=== PATIENT | female | born 1955 | race Caucasian/White ===

== ENCOUNTER → 2017-04-19 | Outpatient (CLI) | payer BC ==
--- NOTE | 2017-04-19 09:47 | KCIC ---
5 view lumbar spine dated 04/19/2017. No comparison available. Clinical indication: Chronic pain in lumbosacral region. FINDINGS: AP, lateral, flexion-extension views and cone-down views of the lumbosacral junction obtained. 5 nonrib-bearing vertebral levels. Vertebral body heights are maintained. There is slight anterolisthesis of L4 relative to L5 that is stable on flexion-extension views. There is also slight anterolisthesis of L3 on L4 that appears somewhat more pronounced in flexion. Minimal hypertrophic change of the superior and inferior endplates throughout. Mild disc space narrowing at L4-L5 with moderate disc space narrowing at L5-S1. [id number] arthrosis lower lumbar apophyseal joints. IMPRESSION: 1. Grade 1 anterolisthesis of L4 on L5, stable on flexion-extension views. 2. Grade 1 anterolisthesis of L3 on L4 that appears slightly more pronounced in flexion. Instability at this level cannot be excluded. 3. Mild to moderate lower lumbar spondylosis. Electronically signed by: Med Canas MD (04/19/2017 9:44 AM)
== END | disposition home or self-care (01) ==
LOC: KCIC 09:08
PROVIDERS: ATTEND Chiropractor
DX: M47.896 Other spondylosis, lumbar region (principal)
CPT/HCPCS: 72110